=== PATIENT | female | born 1960 | race Caucasian/White ===

== ENCOUNTER 2020-10-14 09:17 | Emergency (ER) | payer MEDICAID, SELFPAY ==
[2020-10-14 10:00] VITALS: BP 132/92; PULSE 94; RESP 18; TEMP 36.7; O2SAT 99; BMI 25.0
--- NOTE | 2020-10-14 10:38 | HMH.EDUTC ---
[facility] Disposition Clinical Impression: Difficulty sleeping Disposition: Home, Self-Care Condition on Discharge: Good Instructions: Melatonin: Nature's Sleeping Pill?, Melatonin (Alternative Therapy) Additional Instructions: Try turning off the TV and not looking at your phone at least 2 hours before bed to help you mind relax and limit blue light that may contribute to not sleeping well Over the counter Melatonin may help with difficulty sleeping make sure to discuss with pharmacy to check your medications for you and how much you can take Cut down on your Caffeine intake and make sure not to drink anything with Caffeine past 6pm at night Warm bath may help to relax you Follow up with your Family Doctor tomorrow as scheduled Return if needed Straight to ER if any life threatening symptoms Referrals: Leticia Crawley [Primary Care Provider] - As needed Time of Disposition: 10:48 Medical Decision Making - David Inquiry Pt receiving controlled substance: No David was queried for this patient: No Vital Signs: 10/14/20 10:00 Temperature 98.0 F Temperature Source Oral Pulse Rate [Right Brachial] 94 H Respiratory Rate 18 Blood Pressure [Right Arm] 132/92 H Blood Pressure Mean [Right Arm] 105 Blood Pressure Source [Right Arm] Automatic Cuff Blood Pressure Position [Right Arm] Sitting 02 Sat by Pulse Oximetry 99 Oxygen Delivery Method Room Air [facility] HPI - General Stated complaint: insomnia Time Seen by Provider: 10/14/20 10:38 Mode of Arrival: Ambulatory Source of Information: Patient Limitations: No Limitations Description of Symptoms (Recalled from Triage Doc. by RN): PATIENT C/O DIFFICULTY SLEEPING HEENT Symptoms (Recalled from RN notes): No Resp Symptoms (Recalled from RN notes): No Skin Symptoms (Recalled from RN notes): No MS Symptoms (Recalled from RN notes): No Functional Status (Recalled from RN notes): N/A - History of Present Illness Provider Complaint: Patient state that she has been having trouble sleeping that started after she was prescribed Zyrtec DM State that she has been seen twice at [facility] in [place] and was changed to regular Zyrtec and told to follow up with her PCP and she has an appointment tomorrow but she came in to get checked today to see if there is anything that can be done now or something that she can try. Denies thoughts of self harm denies hallucinations - Related Data Allergies Allergy/AdvReac Type Severity Reaction Status Date / Time No Known Allergies Allergy Verified 10/14/20 10:36 - Worker's Comp Is this a Worker's Comp case?: No [facility] History - Hepatitis A Screen Drug use history?: No High risk sexual behaviors?: No History of sexually transmitted infection?: No Currently employed?: No Childcare worker?: No Do you have indoor plumbing?: Yes Do you have electricity?: Yes Attestation statement:: This patient has been screened for Hepatitis A risk factors. I have reviewed the patient's past medical history: Yes ROS Obtained: Yes All systems reviewed & no additional complaints, Yes Systems reviewed as appropriate & no additional complaints - Constitutional Constitutional: Reports system reviewed and no additional complaints, except as docu, Denies body ache, Denies chills, Denies fatigue, Denies fever(s), Denies headache(s), Reports other (difficulty falling asleep) - ENT Ears, Nose, Mouth, and Throat: Reports system reviewed and no additional complaints, except as docu - Cardiovascular Cardiovascular: Reports system reviewed and no additional complaints, except as docu - Respiratory Respiratory: Reports system reviewed and no additional complaints, except as docu - Gastrointestinal Gastrointestingal: Reports: system reviewed and no additional complaints, except as docu - Musculoskeletal Musculoskeletal: Reports system reviewed and no additional complaints, except as docu - Neurologic Neurologic: Reports system reviewed and no additional complaints, e
[2020-10-14 10:49] VITALS: BP 132/92; PULSE 94; RESP 18; TEMP 36.7; O2SAT 99
== END 2020-10-14 10:50 | disposition home or self-care (01) ==
PROVIDERS: Emergency Provider Nurse Practitioner; PCP Nurse Practitioner Family
DX: G47.9 Sleep disorder, unspecified (principal)
CPT/HCPCS: 99202; G0463

== ENCOUNTER 2024-05-19 18:11 | Emergency (ER) | payer MEDICAID, SELFPAY ==
[2024-05-19 18:18] VITALS: BP 180/91; PULSE 100; RESP 18; TEMP 36.6; O2SAT 100; BMI 27.4
--- NOTE | 2024-05-19 18:31 | PC.NURSE ---
DR KOHLI AT BEDSIDE
--- NOTE | 2024-05-19 18:38 | XR_ITS ---
PROCEDURE INFORMATION: Exam: XR Left Knee Exam date and time: 05/19/2024 6:48 PM Age: 64 years old Clinical indication: Injury or trauma; Fall; Other: Pain; Additional info: Fall, injury TECHNIQUE: Imaging protocol: Radiologic exam of the left knee. Views: 3 views. COMPARISON: No relevant prior studies available. FINDINGS: Bones/joints: Comminuted fracture of the inferior pole of the left knee with slight distraction of the major fracture fragments. No other fracture evident. Soft tissues: Normal. IMPRESSION: Patella fractures.
--- NOTE | 2024-05-19 18:42 | ED_ITS ---
Discharge Plan Disposition Patient Disposition: Home, Self-Care Prescriptions Prescriptions: New hydrocodone-acetaminophen 5-325 mg tablet 1 tab PO Q6H PRN (Reason: pain) 3 Days Qty: 12 0RF No Action estradiol 0.5 mg tablet 0.5 mg PO DAILY sertraline 50 mg tablet 50 mg PO DAILY medroxyprogesterone 2.5 mg tablet 2.5 mg PO DAILY Referrals Follow up/Referrals: Saskia Santos APRN [Primary Care Provider] - See instructions Activity Restrictions/Add. Instructions Additional Instructions/Restrictions: Please follow-up with your dentist regarding your dental subluxations as discussed. The Dermabond that you have on your lips should fall off in 5 to 7 days. Additionally your patellar/knee Fracture should heal without surgery but I do recommend you keep your knee immobilizer on and remain nonweightbearing until you are cleared by orthopedic surgeon. As discussed you will follow-up with your own orthopedic surgeon. Clinical Impressions Clinical Impression: Subluxation of tooth, Laceration of lower lip, Contusion of knee, left, Patellar fracture Print Language Print Language: Cook Islander Discharge ED Provider: Natalio Buchanan General Adult HPI General Chief complaint: Fall Stated complaint: AO 05/19/24 1745 Injury left leg,cut lower lip Time Seen by Provider: 05/19/24 18:30 Mode of Arrival: Wheelchair Source of Information: Patient Description of Symptoms (Recalled from ER Triage Doc. by RN): Pt presents for evaluation of left knee pain and loose teeth after falling. Pt states she tripped while walking. Denies LOC/BT History of Present Illness HPI narrative: Patient is a 64-year-old female presenting today after a fall. Mechanical fall on gravel fell directly onto her left knee and her face. No loss of consciousness. Neurologically no symptoms. She had a laceration and a small cut to her lower lip and felt as though her upper 2 teeth were loose. Able to bite down without a difficulty regarding her jaw. No anticoagulants or antiplatelet agents. No injuries to her chest abdomen pelvis or long bones aside from her left knee. Was unable to walk prior to arrival due to pain in the left knee Related Data Home Medications ?Medication ?Instructions ?Recorded ?Confirmed estradiol 0.5 mg tablet 0.5 mg PO DAILY 03/23/23 03/23/23 medroxyprogesterone 2.5 mg tablet 2.5 mg PO DAILY 03/23/23 03/23/23 sertraline 50 mg tablet 50 mg PO DAILY anxiety 03/23/23 03/23/23 Previous Rx's ?Medication ?Instructions ?Recorded hydrocodone 5 mg-acetaminophen 325 1 tab PO Q6H PRN pain 3 days #12 05/19/24 mg tablet tabs Allergies Allergy/AdvReac Type Severity Reaction Status Date / Time No Known Allergies Allergy Verified 10/14/20 10:36 [facility] Disclaimer: The information contained in this section may have been updated after the patient was seen, as this information can be updated by other users. Medical History (Updated 05/19/24 @ 19:08 by Natalio Buchanan MD) Anxiety Difficulty sleeping Surgical History (Updated 03/23/23 @ 15:55 by Fawn Mcmanus LPN) Kidney stones H/O tubal ligation Social History (Updated 03/23/23 @ 15:55 by Fawn Mcmanus LPN) Smoking Status: Never smoker alcohol intake: never substance use type: denies use current occupational status: unemployed Travel in the last 8 weeks: None household members: spouse housing: house Have you lived/traveled outside [place] in past 30 days?: No Contact w/someone who lives/traveled outside [place] past 30 days?: No Exposure to someone with infectious disease in past 14 days?: No Do you have a fever (greater than 100.4 F or 38 C)?: No Have you tested positive for COVID-19: No Exposed to someone with COVID-19 in past 14 days?: No Do you have a sore throat?: No Do you have a cough?: No Do you have any weakness?: No Do you have any diarrhea?: No Are you experiencing any unusual bleeding?: No Do you have any muscle aches/pain?: No Do you have any abdominal pain?: No Are you experiencing loss of taste or smell?: No ROS Obtained: Yes All systems reviewed & no additional complaints except as documented Physical Exam General General appearance: alert Expanded ENT Exam Nose/Mouth Image: 2 1. Superficial laceration 2. Very small punctate penetrating skin injury only few millimeters deep not through and through Open Mouth Image: 2 1. Teeth appear to be appropriately positioned and mildly loose and there is blood around the gumline consistent with dental subluxation Respiratory Respiratory exam: Present normal lung sounds bilaterally Cardiovascular Cardiovascular exam: Present regular rate Neurological Exam Neurological exam: Present alert Medical Decision Making Medical Records Screening: Per USPSTF and CDC recommendations, given the prevalence of disease in our region, it is our hospital?s policy to screen for HIV and viral Hepatitis for all patients aged 18 and over and those with ongoing risk factors. David Inquiry Pt receiving controlled substance: No Vital Signs: 05/19/24 18:18 Temperature 98 F Temperature Source Oral Pulse Rate [Right] 100 H Respiratory Rate 18 Blood Pressure [Right Arm] 180/91 H Blood Pressure Mean [Right Arm] 120 Blood Pressure Source [Right Arm] Automatic Cuff Blood Pressure Position [Right Arm] Sitting 02 Sat by Pulse Oximetry 100 Orders (Tests/Meds): ED MEDICATIONS Discontinued Medications Generic Name Dose Route Start Last Admin Trade Name Freq PRN Reason Stop Dose Admin Tetanus/Reduced Diphtheria/Acell Pertussis 0.5 ml 05/19/24 18:38 05/19/24 19:09 Tet/Diphth/Pert-Adult 0.5ml Syringe IM 05/19/24 18:39 0.5 ml .ONCE ONE Administration ORDERS Category Date Time Status Knee XR left 3 views [XR knee LT 3V] Stat Exams 05/19/24 18:38 Taken Medical Decision Narrative: 64-year-old with minor head injury [place] CT head negative Nexus negative no indication for any CT imaging. Her mandible and maxilla appear to be intact clinically she does have some subluxed teeth as noted on her physical exam. No indication for emergency dental or oral maxillofacial surgery intervention. I have advised that she does follow-up with a dentist. No injuries elsewhere aside from her left knee. Tdap is being updated. X-ray of her knee will be performed and I will reassess after that. She claims to not be able to ambulate if that remains the case with negative films we may proceed with a CT scan to evaluate for possible occult tibial plateau fracture. X-ray performed I personally interpreted which shows horizontally oriented patellar fracture. Particularly and best seen on the lateral view. Femur tib- fib all appear unremarkable. Patient was placed in a knee immobilizer and made nonweightbearing we will follow-up with her orthopedic surgeon. Pain medicines have been prescribed. She is been advised to take a daily aspirin given her immobilization status. Family is aware of this since it was the patient. Crutches were provided as well. Laceration was repaired with Dermabond. The laceration was very superficial and there was not a lot of tissue to reapproximate. Lastly she will follow-up with her dentist regarding subluxation of her teeth. Procedures Laceration Laceration 1: Site: lip Side (If applicable): left Size (cm): 2 Description: linear and involves hans border Skin layer closed with: Dermabond Critical Care Critical Care Time Critical Care Time: No
--- NOTE | 2024-05-19 18:48 | PC.NURSE ---
XR AT BEDSIDE
--- NOTE | 2024-05-19 19:05 | PC.NURSE ---
gave shift report to za tyler
[2024-05-19] MEDS: TET/DIPHTH/PERT-ADULT 0.5ML SYRINGE 0.5 ML IM (19:09)
--- NOTE | 2024-05-19 19:22 | PC.NURSE ---
Knee immobilizer placed on patient and patient demonstrated use of crutches.
[2024-05-19 19:30] VITALS: BP 146/79; PULSE 88; RESP 14; TEMP 36.7; O2SAT 99
== END 2024-05-19 19:32 | disposition home or self-care (01) ==
PROVIDERS: Emergency Provider Student in an Organized Health Care Education/Training Program; PCP Nurse Practitioner Family
DX: S82.002A Unspecified fracture of left patella, initial encounter for closed fracture (principal); S01.511A Laceration without foreign body of lip, initial encounter; S03.2XXA Dislocation of tooth, initial encounter; W01.198A Fall on same level from slipping, tripping and stumbling with subsequent striking against other object, initial encounter; Z23 Encounter for immunization
CPT/HCPCS: 12011; 90471; 99283; 73562; 90715